=== PATIENT | male | born 1965 | race Caucasian/White ===

== ENCOUNTER 2018-02-09 17:25 | Emergency (ER) | payer OTHER ==
--- NOTE | 2018-02-09 17:43 | EDPHY ---
H & P Stated Complaint: l sided abd pain waxes and wanes last 5 days denies n/v/d Time Seen by Provider: 02/09/18 17:43 - Personal History Current Tetanus Diphtheria and Acellular Pertussis (TDAP): Yes - Medical/Surgical History Hx Asthma: No Hx Chronic Respiratory Disease: No Hx Diabetes: No Hx Cardiac Disease: No Hx Renal Disease: No Hx Cirrhosis: No Hx Alcoholism: No Hx HIV/AIDS: No Hx Splenectomy or Spleen Trauma: No Other PMH: healthy - Social History Smoking Status: Never smoked Constitutional: Initial Vital Signs Temperature (C) 36.3 C 02/09/18 17:30 Heart Rate 80 02/09/18 17:30 Respiratory Rate 18 02/09/18 17:30 Blood Pressure 115/79 02/09/18 17:30 O2 Sat (%) 94 02/09/18 17:30 O2 Delivery Mode Room Air Allergies/Adverse Reactions: No Known Allergies Allergy (Verified 02/09/18 17:29) Home Medications: Medication Instructions Recorded HYDROcodone/APAP 325 [[place] 1 - 2 each PO Q4-6PRN PRN #20 tab 02/09/18 10/325] Medical Decision Making - Diagnostics Imaging Results: Imaging Impressions Abdomen CT 02/09/18 17:48 Impression: 1. Mild constipation. No diverticulitis or bowel obstruction. 2. Query low-grade pancreatitis evidenced by subtle peripancreatic edema. 3. No intraabdominal mass, fluid collection, or lymphadenopathy. Findings discussed with Emergency Department physician, Brandon Moya M.D., on February 09, 2018 at 1839. E:/amm Imaging: Discussed imaging studies w/ call center assistant Radiologist, I viewed and interpreted images myself ED Course/Re-evaluation: CHIEF COMPLAINT: Left-sided abdominal pain for several days HISTORY OF PRESENT ILLNESS: 53-year-old healthy male with no complaints except for left-sided upper abdominal pain for several days. It hurts just over his spleen area. He denies any injuries. Denies any fevers or chills. Denies any nausea vomiting diarrhea. He has had prior surgery which is appendectomy years ago. He has never had any symptoms like this. The pain waxes and wanes randomly and is not exacerbated or relieved by anything. REVIEW OF SYSTEMS: A comprehensive 10 system review of systems is otherwise negative aside from elements mentioned in the history of present illness and medical decision making. PHYSICAL EXAM: HR, BP, O2 Sat, RR. Temp noted General Appearance: Alert, well hydrated, appropriate, and non-toxic appearing. Head: Atraumatic without scalp tenderness or obvious injury Eyes: Pupils equal, round, reactive to light and accommodation, EOMI, no trauma , no injection. Ears: Clear bilaterally, no perforation, normal landmarks Nose: Atraumatic, no rhinorrhea, clear. Throat: There is no erythema or exudates, no lesions, normal tonsils, mucus membranes moist. Neck: Supple, 2+ carotid upstroke, nontender, no lymphadenopathy. Respiratory: No retractions, no distress, no wheezes, and no accessory muscle use. Lungs are clear to auscultation bilaterally. Cardiovascular: Regular rate and rhythm, no murmurs, rubs, or gallops. Bilateral carotid, radial, dorsalis pedis, and posterior tibial pulses intact. Good capillary refill all extremities. Gastrointestinal: Abdomen is soft, nontender, non-distended, no masses, no rebound, no guarding, no peritoneal signs. Musculoskeletal: Normal active ROM of all extremities, atraumatic. Neurological: Alert, appropriate, and interactive. The patient has normal DTRs and non-focal cranial nerves, motor, sensory, and cerebellar exam. Skin: No rashes, good turgor, no nodules on palpation. Past medical history: Noncontributory Past surgical history: Appendectomy Family history: Noncontributory Social history: , employed, does not abuse tobacco drugs or alcohol DIAGNOSTICS/PROCEDURES/CRITICAL CARE TIME: Study: CT scan of the abdomen pelvis with IV contrast Indication: Left upper quadrant abdominal pain Results: CT scan of the abdomen and pelvis was obtained. The results of the study are possible pancreatitis. The study was read by the radiologist, Dr. Akers. I viewed the images myself on the PACS system. DIFFERENTIAL DIAGNOSIS: The differential diagnosis for the patient's abdominal pain included but was not limited to appendicitis, cholecystitis, hernias, testicular torsion, gastritis, and urinary tract infection. MEDICAL DECISION MAKING: This patient is in no distress. Vital signs are normal. I am not picking up any significant acute abdomen or peritoneal signs. He is somewhat symptom free now as this pain waxes and wanes and I cannot really reproduce it with palpation. We will perform a Chem [address] of his abdomen pelvis all pending. Patient does not want anything for pain or nausea. CT shows possible pancreatitis. Lipase and LFTs ordered. 1L IV NS and 30mg IV Toradol ordered. Lipase is elevated at 7532, indicating pancreatitis. I discussed these results with the patient and heavily recommended admission for further evaluation. He declined admission and would prefer to return home and follow up with GI independently. I discussed the risks including of leaving without determining the cause of his pancreatitis, but he affirms he would like to return home. He will be discharged home with a script for [place], instructions to follow a clear liquid diet, and follow up with GI within 24 hours. Return precautions discussed. - Data Points Laboratory Results: 02/09/18 02/09/18 18:34 17:59 POC Hgb 12.9 gm/dL L gm/dL (13.7-17.5) POC Hct 38 % L % (40-51) POC Sodium 140 mEq/L mEq/L (135-145) POC Potassium 4.5 mEq/L mEq/L (3.3-5.0) POC Chloride 101 mEq/L mEq/L (97-110) POC BUN 23 mg/dL mg/dL (7-23) POC Creatinine 1.2 mg/dL mg/dL (0.7-1.3) POC Glucose 98 mg/dL mg/dL (70-100) Total Bilirubin 0.7 mg/dL mg/dL (0.1-1.4) Conjugated Bilirubin 0.5 mg/dL mg/dL (0.0-0.5) Unconjugated Bilirubin 0.2 mg/dL mg/dL (0.0-1.1) AST 53 IU/L IU/L (17-59) ALT 32 IU/L IU/L (21-72) Alkaline Phosphatase 74 IU/L IU/L (38-126) Total Protein 7.5 g/dL g/dL (6.3-8.2) Albumin 4.3 g/dL g/dL (3.5-5.0) Lipase 7532 IU/L H IU/L (23-300) Specimen Hemolysis 161 Medications Given: Discontinued Medications Hydrocodone Bitart/Acetaminophen ([place] 5/325mg Prepack#6) 1 btl TAKEHOME EDNOW ONE Stop: 02/09/18 20:24 Last Admin: 02/09/18 20:27 Dose: 1 btl Sodium Chloride (Ns) 1,000 mls @ 0 mls/hr IV EDNOW ONE; Wide Open PRN Reason: Protocol Stop: 02/09/18 17:49 Last Admin: 02/09/18 17:59 Dose: 1,000 mls Ketorolac Tromethamine (Toradol) 30 mg IVP EDNOW ONE Stop: 02/09/18 18:42 Last Admin: 02/09/18 18:44 Dose: 30 mg Point of Care Test Results: Chemistry 02/09/18 17:59 POC Sodium 140 mEq/L mEq/L (135-145) POC Potassium 4.5 mEq/L mEq/L (3.3-5.0) POC Chloride 101 mEq/L mEq/L (97-110) POC BUN 23 mg/dL mg/dL (7-23) POC Creatinine 1.2 mg/dL mg/dL (0.7-1.3) POC Glucose 98 mg/dL mg/dL (70-100) ISTAT H&H 02/09/18 17:59 POC Hgb 12.9 gm/dL L gm/dL (13.7-17.5) POC Hct 38 % L % (40-51) Departure - Departure Disposition: Home, Routine, Self-Care Clinical Impression: Pancreatitis Qualifiers: Chronicity: acute Pancreatitis type: unspecified pancreatitis type Acute pancreatitis complication: unspecified Qualified Code(s): K85.90 - Acute pancreatitis without necrosis or infection, unspecified Condition: Good Instructions: Pancreatitis (ED), Clear Liquid Diet (ED) Additional Instructions: 1. Clear liquid diet until evaluated by GI doctor. 2. Follow up with GI doctor in the next 24 hours without fail. 3. Use [place] as prescribed as needed for severe pain. This medication can make you constipated and drowsy. Do not use prior to driving. 4. Return to the ED for any worsening of condition or if you decide you would like to be admitted. Referrals: Ban Gutiérrez MD [Primary Care Provider] - As per Instructions Dwayne Gee MD [Medical Doctor] - As per Instructions Prescriptions: HYDROcodone/APAP 10/325 [[place] 10/325] 1 - 2 each PO Q4-6PRN PRN #20 tab PRN Reason: Pain, Moderate
[2018-02-09] MEDS ORDERED: NS 1,000 ML IV ONE (17:48)
[2018-02-09] MEDS ORDERED: IOPAMIDOL (ISOVUE-300) 100 ML BTL ONE (18:06)
[2018-02-09] MEDS ORDERED: KETOROLAC 30 MG/1 ML SDV IVP ONE (18:41)
[2018-02-09] MEDS ORDERED: HYDROCOD/APAP 5/325 PREPACK#6 BTL TAKEHOME ONE (20:23)
[2018-02-09 20:35] VITALS: BP 115/78
== END 2018-02-09 20:35 | disposition home or self-care (01) ==
DX: K85.90 Acute pancreatitis without necrosis or infection, unspecified (principal); E86.9 Volume depletion, unspecified
CPT/HCPCS: 82435-PO; 82565-PO; 82947-PO; 84132-PO; 84295-PO; 84520-PO; 85014-ER; 96374; J1885; Q9967

== ENCOUNTER 2018-02-23 16:40 | Observation (INO) | payer OTHER ==
[2018-02-23] MEDS ORDERED: NS 1,000 ML IV ONE (17:12)
--- NOTE | 2018-02-23 17:15 | EDPHY ---
H & P Time Seen by Provider: 02/23/18 16:58 HPI/ROS: CHIEF COMPLAINT: Pancreatitis abdominal pain HISTORY OF PRESENT ILLNESS: Patient was seen here in the emergency department on February 09 with pancreatitis diagnosed on CT with a lipase of 7500. He has been having some abdominal pain since about new years Maureen. He just be treated as an outpatient is lipase went down to 991 on February 14 but was up over 3000 again on February 19 when he started eating solid food. He was sent here by Dr. Ban Gutiérrez for admission. Patient describes just generalized abdominal pain which is constant and worse with eating or drinking anything. Does not radiate. Not associated with fevers vomiting or diarrhea. REVIEW OF SYSTEMS: Eye: no change in vision ENT: no sore throat Cardiac: no chest pain or syncope Pulmonary: no cough or SOB Abdomen: HPI Musculoskeletal: no back pain Skin: no rash Neuro: no headache Constitutional: no fever : no urinary symptoms A comprehensive 10 point review of systems is otherwise negative aside from elements mentioned in the history of present illness. PAST MEDICAL HISTORY: HIV Social history: Here with his brother, denies alcohol General Appearance: Alert and conversant, cooperative. Eyes: No scleral icterus. ENT, Mouth: Normal mucous membranes. Respiratory: Normal respiratory effort, breath sounds equal, lungs are clear to auscultation. Cardiovascular: Regular rate and rhythm. Gastrointestinal: Abdomen is soft and non tender. No rebound or guarding. Neurological: Alert, face symmetric, normal motor and sensory in extremities. Skin: Warm and dry, no rashes. Musculoskeletal: No peripheral edema. Psychiatric: Not agitated. Emergency Department course/MDM: Admission hospitalist service for pancreatitis. IV fluids. The CT scan from February 09 reviewed and gallbladder was described as normal. 1820: Lipase >2600, pancreatitis. Smoking Status: Never smoked Constitutional: Initial Vital Signs Temperature (C) 36.5 C 02/23/18 16:43 Heart Rate 65 02/23/18 16:43 Respiratory Rate 16 02/23/18 16:43 Blood Pressure 121/59 H 02/23/18 16:43 O2 Sat (%) 97 02/23/18 16:43 O2 Delivery Mode Room Air Allergies/Adverse Reactions: No Known Allergies Allergy (Verified 02/23/18 16:42) Home Medications: Medication Instructions Recorded Acetaminophen with Codeine 1 tab PO 02/23/18 [TYLENOL #3] Dolutegravir Sodium [Tivicay] 50 mg PO DAILY 02/23/18 Emtricitabine/Tenofov Alafenam 1 tab PO DAILY 02/23/18 [Descovy 200-25 mg Tablet] clonazePAM [Clonazepam] 1 mg PO BID 02/23/18 Medical Decision Making Differential Diagnosis: Differential for pancreatitis considered including but not limited to alcoholic pancreatitis, drug reaction, hypertriglyceridemia, gallstones, idiopathic Consult/Admit Bed Type: [facility] - Data Points Laboratory Results: Laboratory Results 02/23/18 17:00 02/23/18 17:00 02/23/18 02/23/18 17:00 17:00 WBC 6.21 10^3/uL 10^3/uL (3.80-9.50) RBC 4.10 10^6/uL L 10^6/uL (4.40-6.38) Hgb 13.0 g/dL L g/dL (13.7-17.5) Hct 38.3 % L % (40.0-51.0) MCV 93.4 fL fL (81.5-99.8) MCH 31.7 pg pg (27.9-34.1) MCHC 33.9 g/dL g/dL (32.4-36.7) RDW 11.9 % % (11.5-15.2) Plt Count 281 10^3/uL 10^3/uL (150-400) MPV 10.3 fL fL (8.7-11.7) Neut % (Auto) 50.1 % % (39.3-74.2) Lymph % (Auto) 34.6 % % (15.0-45.0) [place] % (Auto) 10.5 % % (4.5-13.0) Eos % (Auto) 3.5 % % (0.6-7.6) Baso % (Auto) 1.1 % % (0.3-1.7) Nucleat RBC Rel Count 0.0 % % (0.0-0.2) Absolute Neuts (auto) 3.11 10^3/uL 10^3/uL (1.70-6.50) Absolute Lymphs (auto) 2.15 10^3/uL 10^3/uL (1.00-3.00) Absolute Monos (auto) 0.65 10^3/uL 10^3/uL (0.30-0.80) Absolute Eos (auto) 0.22 10^3/uL 10^3/uL (0.03-0.40) Absolute Basos (auto) 0.07 10^3/uL 10^3/uL (0.02-0.10) Absolute Nucleated RBC 0.00 10^3/uL 10^3/uL (0-0.01) Immature Gran % 0.2 % % (0.0-1.1) Immature Gran # 0.01 10^3/uL 10^3/uL (0.00-0.10) Sodium 136 mEq/L mEq/L (135-145) Potassium 4.1 mEq/L mEq/L (3.5-5.2) Chloride 101 mEq/L mEq/L (97-110) Carbon Dioxide 27 mEq/l mEq/l (22-31) Anion Gap 8 mEq/L mEq/L (6-14) BUN 13 mg/dL mg/dL (7-23) Creatinine 1.4 mg/dL H mg/dL (0.7-1.3) Estimated GFR 53 Glucose 98 mg/dL mg/dL (70-100) Calcium 9.5 mg/dL mg/dL (8.5-10.4) Total Bilirubin 0.3 mg/dL mg/dL (0.1-1.4) Conjugated Bilirubin 0.3 mg/dL mg/dL (0.0-0.5) Unconjugated Bilirubin 0.0 mg/dL mg/dL (0.0-1.1) AST 26 IU/L IU/L (17-59) ALT 30 IU/L IU/L (21-72) Alkaline Phosphatase 144 IU/L H IU/L (38-126) Total Protein 7.7 g/dL g/dL (6.3-8.2) Albumin 4.4 g/dL g/dL (3.5-5.0) Lipase 2618 IU/L H IU/L (23-300) Medications Given: Acetaminophen (Tylenol) 650 mg PO Q6 PRN PRN Reason: Pain, Mild/Fever, Can Take PO Stop: 08/22/18 17:32 Last Admin: 02/23/18 18:06 Dose: 650 mg Discontinued Medications Sodium Chloride (Ns) 1,000 mls @ 0 mls/hr IV EDNOW ONE; Wide Open PRN Reason: Protocol Stop: 02/23/18 17:13 Last Admin: 02/23/18 17:34 Dose: 1,000 mls Departure - Departure Disposition: [facility] Inpatient Acute Clinical Impression: Pancreatitis Qualifiers: Chronicity: acute Pancreatitis type: unspecified pancreatitis type Acute pancreatitis complication: no infection or necrosis Qualified Code(s): K85.90 - Acute pancreatitis without necrosis or infection, unspecified Condition: Good
[2018-02-23 17:17] LABS: PLATELET COUNT 281 10^3/uL (150-400)
[2018-02-23] MEDS ORDERED: ONDANSETRON 4 MG/2 ML VIAL IVP PRN (17:33)
[2018-02-23] MEDS ORDERED: ACETAMINOPHEN 325 MG TAB PO PRN (17:33)
[2018-02-23] MEDS ORDERED: ZOLPIDEM TARTRATE 5 MG TAB PO PRN (17:33)
[2018-02-23] MEDS: NS 1,000 ML IV SCH (18:24)
[2018-02-23] MEDS ORDERED: NALOXONE HCL 0.4 MG/ML INJ IVP PRN (20:32)
[2018-02-23] MEDS ORDERED: morphINE PCA 30 MG/30 ML PCA IV PRN (20:32)
[2018-02-23] MEDS ORDERED: clonazePAM 1 MG TAB PO PRN (21:08)
[2018-02-23] MEDS: MELATONIN 3 MG TAB PO SCH (22:41)
[2018-02-24] MEDS: oxyCODONE IR 5 MG TAB PO PRN ×4 (00:16→23:41)
[2018-02-24] MEDS: NS 1,000 ML IV SCH ×4 (00:18→23:42)
--- NOTE | 2018-02-24 03:00 | PDGENHP ---
History and Physical - Chief Complaint Abdominal pain - History of Present Illness 53 yo M w/ hx of well controlled HIV presents with sub-acute pancreatitis. The patient first developed abdominal discomfort at the end of January. He presented to the ED on 02/09 and wa diagnosed with pancreatitis per CT with subtle peripancreatic edema and lipase of 7500. He opted to be treated as an outpatient and started a clear liquid diet at that time. He was advanced to solids on 02/14 but was transitioned back to liquids a few days later when his lipase increased. He saw his ID doctor Dr. Gutiérrez in clinic yesterday who sent him to the ED for evaluation since e was not getting better with conservative, outpatient management. At the time of my evaluation he is having moderate, central pain. He is tolerating PO reasonably well but still having pain after almost 3 weeks of symptoms. Abdominal ultrasound in the ED did not show stones but revealed a prominent pancreatic duct. His lipase is 2618 today. He denies significant ETOH use, hx of gallstones, family hx of pancreatitis, or other recent illness aside from the issues described above. He takes Descovy and Tivicay for his HAART regimen, which are not common culprits for drug induced pancreatitis. Case discussed with Dr. Carvajal; records reviewed and summarized above. History Information - Allergies/Home Medication List Allergies/Adverse Reactions: No Known Allergies Allergy (Verified 02/23/18 16:42) Home Medications: Dolutegravir Sodium [Tivicay] 50 mg PO DAILY 02/23/18 [Last Taken 02/23/18] Emtricitabine/Tenofov Alafenam [Descovy 200-25 mg Tablet] 1 tab PO DAILY [Last Taken 02/23/18] Hydrocodone/Acetaminophen [Hydrocodon-Acetaminophen 5-325] 1 - 2 each PO Q4H PRN 02/23/18 [Last Taken Unknown] clonazePAM [Clonazepam] 1 mg PO BID PRN 02/23/18 [Last Taken Unknown] I have personally reviewed and updated: family history, medical history - Past Medical History HIV - Surgical History Reports: appendectomy - Family History Additional family history: Denies family hx of pancreatitis - Social History Smoking Status: Never smoked Review of Systems Review of Systems: ROS: 10pt was reviewed & negative except for what was stated in HPI & below Physical Exam Physical Exam: Temp Pulse Resp BP Pulse Ox 36.4 C 63 18 128/77 H 95 02/23/18 23:18 02/23/18 23:18 02/23/18 23:18 02/23/18 23:18 02/23/18 23:18 Constitutional: appears nourished, uncomfortable Eyes: PERRL, EOMI Ears, Nose, Mouth, Throat: moist mucous membranes, no oral mucosal ulcers Cardiovascular: regular rate and rhythym, no murmur, rub, or gallop Respiratory: no respiratory distress, no rales or rhonchi Gastrointestinal: normoactive bowel sounds, tenderness (Mild, epi-gastric), No guarding, No rebound, No distension Skin: warm, normal color Musculoskeletal: full muscle strength, no muscle tenderness Neurologic: AAOx3, CN II-XII Intact Psychiatric: interacting appropriately, not anxious Lab Data & Imaging Review 02/23/18 17:00 02/23/18 17:00 WBC 6.21 10^3/uL (3.80-9.50) 02/23/18 17:00 RBC 4.10 10^6/uL (4.40-6.38) L 02/23/18 17:00 Hgb 13.0 g/dL (13.7-17.5) L 02/23/18 17:00 Hct 38.3 % (40.0-51.0) L 02/23/18 17:00 MCV 93.4 fL (81.5-99.8) 02/23/18 17:00 MCH 31.7 pg (27.9-34.1) 02/23/18 17:00 MCHC 33.9 g/dL (32.4-36.7) 02/23/18 17:00 RDW 11.9 % (11.5-15.2) 02/23/18 17:00 Plt Count 281 10^3/uL (150-400) 02/23/18 17:00 MPV 10.3 fL (8.7-11.7) 02/23/18 17:00 Neut % (Auto) 50.1 % (39.3-74.2) 02/23/18 17:00 Lymph % (Auto) 34.6 % (15.0-45.0) 02/23/18 17:00 [place] % (Auto) 10.5 % (4.5-13.0) 02/23/18 17:00 Eos % (Auto) 3.5 % (0.6-7.6) 02/23/18 17:00 Baso % (Auto) 1.1 % (0.3-1.7) 02/23/18 17:00 Nucleat RBC Rel Count 0.0 % (0.0-0.2) 02/23/18 17:00 Absolute Neuts (auto) 3.11 10^3/uL (1.70-6.50) 02/23/18 17:00 Absolute Lymphs (auto) 2.15 10^3/uL (1.00-3.00) 02/23/18 17:00 Absolute Monos (auto) 0.65 10^3/uL (0.30-0.80) 02/23/18 17:00 Absolute Eos (auto) 0.22 10^3/uL (0.03-0.40) 02/23/18 17:00 Absolute Basos (auto) 0.07 10^3/uL (0.02-0.10) 02/23/18 17:00 Absolute Nucleated RBC 0.00 10^3/uL (0-0.01) 02/23/18 17:00 Immature Gran % 0.2 % (0.0-1.1) 02/23/18 17:00 Immature Gran # 0.01 10^3/uL (0.00-0.10) 02/23/18 17:00 Sodium 136 mEq/L (135-145) 02/23/18 17:00 Potassium 4.1 mEq/L (3.5-5.2) 02/23/18 17:00 Chloride 101 mEq/L (97-110) 02/23/18 17:00 Carbon Dioxide 27 mEq/l (22-31) 02/23/18 17:00 Anion Gap 8 mEq/L (6-14) 02/23/18 17:00 BUN 13 mg/dL (7-23) 02/23/18 17:00 Creatinine 1.4 mg/dL (0.7-1.3) H 02/23/18 17:00 Estimated GFR 53 02/23/18 17:00 Glucose 98 mg/dL (70-100) 02/23/18 17:00 Calcium 9.5 mg/dL (8.5-10.4) 02/23/18 17:00 Total Bilirubin 0.3 mg/dL (0.1-1.4) 02/23/18 17:00 Conjugated Bilirubin 0.3 mg/dL (0.0-0.5) 02/23/18 17:00 Unconjugated Bilirubin 0.0 mg/dL (0.0-1.1) 02/23/18 17:00 AST 26 IU/L (17-59) 02/23/18 17:00 ALT 30 IU/L (21-72) 02/23/18 17:00 Alkaline Phosphatase 144 IU/L (38-126) H 02/23/18 17:00 Total Protein 7.7 g/dL (6.3-8.2) 02/23/18 17:00 Albumin 4.4 g/dL (3.5-5.0) 02/23/18 17:00 Lipase 2618 IU/L (23-300) H 02/23/18 17:00 Imaging Review: Imaging Impressions Abdomen Ultrasound 02/23/18 17:35 Impression: 1. Newly prominent pancreatic duct in a patient with mild pancreatitis. The distal half of the pancreas is obscured by bowel gas. If complete pancreatic evaluation is important then consider obtaining follow-up CT with IV contrast, particularly if enzymes have not normalized. Otherwise continued ultrasound follow-up may be appropriate. Assessment & Plan Assessment: 53 yo M presents with sub-acute pancreatitis. Plan: 1. Sub-acute pancreatitis - Present for almost 3 weeks; etiology remains unclear. His HAART regimen is a possible culprit but Descovy and Tivicay rarely , if ever, are known to cause pancreatitis. He has no prior hx of gallstones and none are seen on US. He drinks very little ETOH. US on admission demonstrates new pancreatic duct dilation. - Will repeat CT scan for further evaluation - NPO, ADAT - mIVF, pain control PRN - ID consulted to consider possibility of HAART contribution to symptoms - If etiology remains unclear, may benefit from MRCP/ERCP 2. HIV - Well controlled with undetectable viral load on 02/14/18; CD4 747 on . He is on Descovy and Tivicay as an outpatient. - ID consult placed 3. LAURIE - I suspect this is related to dehydration from ongoing pancreatitis. - mIVF overnight - Repeat BMP in the morning Diet - NPO, mIVF, ADAT Code - Full Ppx - LMWH Dispo - Admit under observation status
[2018-02-24 05:47] LABS: PLATELET COUNT 225 10^3/uL (150-400)
[2018-02-24] MEDS: ENOXAPARIN 40 MG/0.4 ML SYR SC SCH (08:01)
[2018-02-24] MEDS ORDERED: IOPAMIDOL (ISOVUE 370) 100 ML BTL IV ONE (09:59)
--- NOTE | 2018-02-24 10:17 | PCMIDPN ---
Assessment/Plan: #Pancreatitis: unclear etiology, strongly suspect not ARV. L midquadrant abdominal pain, minimal weight loss --repeat CT today --GI consult placed by me, spoke to Dr. Luque. Await rec from GI for additional w/u --keep NPO except for meds for bowel/pancreas rest #HIV: long standing viral suppression: do not disclose to family/friends --continue ARV: TAF/FTC/DTG (prior to this TDF/FTC/RAL) Care also coordinated with Dr. Pearson Subjective: 53-year-old with well-controlled HIV, CD4 747 with undetectable viral load on dolutegravir, emtricitabine and tenofovir alafenamide whose problems date back to beginning of the year following new 's richa when he developed abdominal pain in described as "hunger pains x10" that do not change with eating. Abdominal pain is not particularly worsened with eating, only way that is improved is pain medicines. It does not radiate, no associated changes in bowel habits. Appetite is fair. Small amount of weight loss. No jaundice. No new medicines including vitamins and herbs. Reviewed alcohol use which I would drinking primarily socially 2 drinks, which is not changed from his baseline and generally occurs < 1x weekly. Never used tobacco, marijuana. No recent travel. No dietary changes. Patient's abdominal pain became bothersome enough to present to the emergency room 02/09/18 and had elevated lipase to 7532. He then went on liquid diet and recheck lipase in 900s. Then he returned to some solid foods but fairly bland, low fat diet. Persistent abdominal discomfort and lipase was rechecked and increased to 3092 on 02/19/18. Patient was admitted for work up of pancreatitis. Objective: Vital Signs Temp Pulse Resp BP Pulse Ox 36.4 C 63 16 111/75 95 02/24/18 08:00 02/24/18 08:00 02/24/18 08:00 02/24/18 08:00 02/24/18 08:00 Laboratory Results 02/24/18 05:23 02/24/18 05:23 10/19/15 02/09/18 02/14/18 12:20 18:34 09:04 Lipase 22.0 L 7532 H 991 H 02/19/18 02/23/18 12:48 17:00 Lipase 3092 H 2618 H - Physical Exam General Appearance: alert, no apparent distress EENT: other (good dentition), No thrush Respiratory: lungs clear, No accessory muscle use Neck: supple Cardiac/Chest: regular rate, rhythm, No systolic murmur Extremities: No pedal edema Abdomen: normal bowel sounds, non-tender, soft, other (Mild discomfort to Bilateral "mid" quadrant region), No distended, No guarding, No rebound, No mass , No peritoneal signs Male Genitalia: No south Skin: normal color, warm/dry, No diaphoresis, No rash Neuro/Psych: alert, normal mood/affect, oriented x 3 - Time Spent With Patient Time Spent with Patient: greater than 35 minutes Time Spent with Patient: Greater than 35 minutes spent on this patients care, greater than 50% of time spent counseling, educating, and coordinating care regarding the above mentioned plan. ICD10 Worksheet Patient Problems: Problems Problem Status Onset Pancreatitis Acute MRSA - Methicillin resistant Staphylococcus aureus infection Active
--- NOTE | 2018-02-24 10:46 | ASMTCMCOM ---
CM Note CM Note Notes: Chart review completed on patient. Pt admitted for pancreatitis of unknown etiology. Pt is single and lives independently. Pt is HIV positive, well maintained and family is unaware of diagnosis. GI consulted by ID. Anticipate pt will discharge independently. CM to follow. D/C Plan: Independent Date Signed: 02/24/2018 10:45 AM Electronically Signed By:Evelin Carpio
[2018-02-24] MEDS: Emtricitabine/Tenofov Alafenam [Descovy 200-25 Mg Tablet] PO SCH (11:29)
[2018-02-24] MEDS: Dolutegravir Sodium [Tivicay] 50 MG PO SCH (11:30)
[2018-02-24] MEDS: HYDROCODONE/APAP 5/325 TAB PO PRN ×2 (12:00→15:53)
--- NOTE | 2018-02-24 14:09 | GCON ---
DATE OF CONSULTATION: 02/24/2018 CHIEF COMPLAINT: Abdominal pain. HISTORY OF PRESENT ILLNESS: I am asked to see this patient in consultation by Dr. Juarez for chief complaint of abdominal pain and pancreatitis. Patient is a 53-year-old admitted with pancreatitis. He had similar issue a few weeks ago , admitted, responded to conservative measures. Cause is unclear. He had continued abdominal pain, although on mild to moderate level, still able to eat , but was having elevated lipase and recommended to come into the ER. He has had no fevers. The patient is HIV positive and has been stable on HIV medications for quite some time. In discussion with the ID doctor, they believe that this is not the cause of his pancreatitis. He has never had AIDS. The patient drinks only occasionally, but no recent alcohol before the event of pancreatitis. There is no family history for pancreatitis. No other recent drugs or supplements. At this point, patient has no nausea and vomiting. He is having normal bowel movements, but does feel some epigastric discomfort. Ultrasound yesterday showed suggestion of prominent pancreatic duct, although not well seen. Today, patient is feeling better with pain medications. ALLERGIES: No known drug allergies. CURRENT MEDICATIONS: Clonazepam, Lovenox, [place], melatonin,oxycodone. He takes antiretrovirals which have been stable and no change in medication. PAST MEDICAL HISTORY: Notable for HIV. He is status post appendectomy. FAMILY HISTORY: Negative for history of pancreatitis. SOCIAL HISTORY: Only occasional alcohol. He has never smoked. REVIEW OF SYSTEMS: I performed a complete review of systems which was negative except for the pertinent positives, negatives noted above in the HPI. PHYSICAL EXAM: VITAL SIGNS: Afebrile at 36.5, BP 102/70, pulse 51. CONSTITUTIONAL: He is alert and oriented. He is in no apparent distress. EYES : No scleral icterus. HEENT: No oral lesions. CARDIOVASCULAR: Regular rhythm. CHEST: Clear to auscultation. ABDOMEN: Has some tenderness to the epigastric area, but no masses, no rebound. Normal bowel sounds. NEUROLOGICAL : Nonfocal. SKIN: No lesions. LABORATORY DATA: White count 5, hematocrit 35, platelets 225. Alkaline phosphatase 112, AST 17, ALT 32, total bilirubin 0.2. Triglycerides normal at 129. Lipase 2618. Ultrasound on 02/23/2018 shows newly prominent pancreatic duct in a patient with mild pancreatitis. The distal half of the pancreas is obscured. CT scan of the abdomen done 02/23/2018 shows mild pancreatitis, unchanged by imaging. There is no pancreatic necrosis or peripancreatic collection. Cystic lesion in the pancreatic head measures 0.07 cm and may represent pancreatic cyst or sequelae of recent pancreatitis. ASSESSMENT: Patient with pancreatitis of unclear cause. His ultrasound suggests perhaps prominent pancreatic duct and I think it would be advisable to do imaging to better assess for divisum or stricture, etc. Also has pancreatic cyst of unclear cause. Patient does not have evidence of gallstones. He does not drink alcohol. His triglycerides are normal. Differential would also include medications, although his medications have been stable for many years. Consider autoimmune pancreatitis; I think unlikely. The patient has never had acquired immune deficiency syndrome sequelae, so doubt acquired immune deficiency syndrome cholangiopathy. PLAN: 1. Recommend continued IV fluids. 2. We will check MRCP with and without contrast of the pancreas. 3. May need to consider endoscopic ultrasound to evaluate pancreatic cyst as guided by MRI findings. 4. We will check an IgG4. Patient would like to be discharged tomorrow, which I think will be possible as his pancreatitis is mild and we can complete the workup as an outpatient. Thank you for this consult. /[id number]/MODL MTDD
[2018-02-24] MEDS ORDERED: GADOBUTROL 10 ML VIAL IVP ONE (15:49)
[2018-02-24] MEDS: MELATONIN 3 MG TAB PO SCH (20:03)
[2018-02-25] MEDS: HYDROCODONE/APAP 5/325 TAB PO PRN ×2 (04:42→08:38)
[2018-02-25] MEDS: NS 1,000 ML IV SCH (07:12)
[2018-02-25 08:00] VITALS: BP 90/55
[2018-02-25] MEDS: ENOXAPARIN 40 MG/0.4 ML SYR SC SCH (08:37)
[2018-02-25] MEDS: Dolutegravir Sodium [Tivicay] 50 MG PO SCH (08:38)
[2018-02-25] MEDS: Emtricitabine/Tenofov Alafenam [Descovy 200-25 Mg Tablet] PO SCH (08:39)
--- NOTE | 2018-02-25 10:48 | PCMIDPN ---
Assessment/Plan: #Pancreatitis: unclear etiology, strongly suspect not ARV. L midquadrant abdominal pain, minimal weight loss --continue clear liquids --dc today --already has GI f/u Monday #HIV: High CD4, long standing viral suppression: do not disclose to family/ friends --continue ARV: TAF/FTC/DTG Greater than 15 minutes spent on this patients care, greater than 50% of time spent counseling, educating, and coordinating care regarding the above mentioned plan. Care coordinated with Dr. Pearson Subjective: Patient continues to have mild abdominal pain. Feels ready to go home, will maintain on clear liquid diet Objective: Vital Signs Temp Pulse Resp BP Pulse Ox 36.5 C 74 12 90/55 L 95 02/25/18 07:59 02/25/18 07:59 02/25/18 07:59 02/25/18 07:59 02/25/18 07:59 Laboratory Results 02/24/18 05:23 02/24/18 05:23 02/24/18 02/25/18 02/26/18 05:59 05:59 05:59 Intake Total 1000 0 Balance 1000 0 - Physical Exam General Appearance: alert, no apparent distress Skin: No rash Neuro/Psych: alert, normal mood/affect, oriented x 3, other (Ambulating in the room) ICD10 Worksheet Patient Problems: Problems Problem Status Onset Pancreatitis Acute MRSA - Methicillin resistant Staphylococcus aureus infection Active
--- NOTE | 2018-02-25 13:01 | ASDISCHSUM ---
Discharge Information Plan Status:Home with No Needs Medically Cleared to Leave:02/24/2018 Discharge Date:02/25/2018 11:54 AM CM D/C Disposition:Home, Routine, Self-Care ADT D/C Disposition:Home, Routine, Self-Care Projected Discharge Date:02/25/2018 12:00 AM Transportation at D/C:Family Discharge Delay Reason: Follow-Up Date:02/25/2018 12:00 AM Discharge Slot: Final Diagnosis:Pancreatitis Placement Information Patient Contact Information Contact Name:JOYCELYN Relationship: Address: Work Phone: City: [facility] Phone: [facility]/[employer] Code: Email: Financial Information Financial Class:[employer] Primary [facility] Desc[facility] Primary Plan Number:[id number] Secondary Plan Desc: Secondary Plan Number: Assessment Information [facility] CM Progress Note CM Note CM Note Notes: Chart review completed on patient. Pt admitted for pancreatitis of unknown etiology. Pt is single and lives independently. Pt is HIV positive, well maintained and family is unaware of diagnosis. GI consulted by ID. Anticipate pt will discharge independently. CM to follow. D/C Plan: Independent Date Signed: 02/24/2018 10:45 AM Electronically Signed By:Evelin Carpio LACE LACKarli Length of stay for Answers: 2 days current admission Acuity / Level of Answers: No Care: Did the patient have an inpatient admission? Comorbidities - select Answers: Other Notes: HIV, pancreatitis all that apply # of Emergency department Answers: 1-2 visits in the last 6 months Score: 4 Date Signed: 02/25/2018 12:59 PM Electronically Signed By:Evelin Carpio Case Management Discharge Plan Note Case Management Discharge Discharge Order Complete? Answers: Yes Transportation Arranged Answers: Family/Friends Transport will Pick (Date 02/25/2018 12:00 AM & Time) Family Notified Answers: Yes Notes: by pt Discharge Comments Notes: Spoke with pt's RN and hospitalist. Pt to discharge independently. No therapies ordered. No CM needs noted at this time. Date Signed: 02/25/2018 01:01 PM Electronically Signed By:Evelin Carpio Intervention Information
--- NOTE | 2018-02-26 13:41 | HOSPPROG ---
Hospitalist Progress Note Assessment/Plan: 1. Sub-acute pancreatitis -continue with NPO, IVF -GI consult pending today -discussed care plan with Dr Juarez 2. HIV - Well controlled with undetectable viral load on 02/14/18; CD4 747 on . He is on Descovy and Tivicay as an outpatient. - per ID 3. LAURIE, resolved - continue IVF, recheck in AM Diet - NPO/IVF Code - Full Ppx - LMWH Dispo - Admit under observation status, possible discharge tomorrow but awaiting GI recommendations Subjective: Says no noticeable change to sxs yet. Mild pain, no n/v/d. No CP/ SOB. Dr Gutiérrez is PCP. - Time Spent With Patient Time Spent with Patient: greater than 25 minutes Time Spent with Patient: Greater than 25 minutes spent on this patients care, greater than 50% of time spent counseling, educating, and coordinating care regarding the above mentioned plan. - Physical Exam Constitutional: no apparent distress, appears nourished, not in pain Eyes: anicteric sclera, EOMI Ears, Nose, Mouth, Throat: moist mucous membranes, hearing normal Cardiovascular: regular rate and rhythym, no murmur, rub, or gallop, No edema Respiratory: no respiratory distress, no rales or rhonchi, clear to auscultation Gastrointestinal: normoactive bowel sounds, tenderness (mild, throughout), No guarding, No rebound, No distension Skin: warm, No rash Psychiatric: interacting appropriately, not anxious, not encephalopathic, thought process linear ICD10 Worksheet Patient Problems: Problems Problem Status Onset MRSA - Methicillin resistant Staphylococcus aureus infection Active Pancreatitis Acute
--- NOTE | 2018-02-26 15:32 | GDS ---
SERVICE: [facility] hospitalist. CONSULT: Infectious Disease and Gastroenterology. PROCEDURES: Abdominal CT on 02/23/2018, which showed a cystic lesion of the pancreatic head, mild pe ripancreatic fat stranding, no necrosis. Abdominal ultrasound on 02/23/2018, which showed prominent pancreatic duct. Abdominal MRI on 02/24/2018, which showed diffuse thickening of the pancreatic head with an intraparenchymal cyst. No discrete pancreatic head mass. Consideration for followup study in 3 months is clinically indicated. HISTORY AND PHYSICAL: Please see previously dictated note by Dr. Olivares. ADMISSION DIAGNOSES: 1. Subacute pancreatitis. 2. Human immunodeficiency virus positive, undetectable viral load. 3. Acute kidney injury. DISCHARGE DIAGNOSES: 1. Subacute pancreatitis, stable. 2. Acute kidney injury, resolved. 3. Human immunodeficiency virus positive, no active viral load. HOSPITAL COURSE: The patient was admitted for IV fluids and further evaluation of persistent abdomin al discomfort in the setting of elevated lipase. He had been trying to treat as an outpatient with a clear liquid diet but was referred to the emergency department when that did not resolve his symptom s, and his lipase remained elevated. He had initial studies as listed above. Lipase was 2618, and c reatinine was noted to be 1.4 at admission. White blood cell count was normal with a hemoglobin of 1 3. He does not have anemia at baseline per [facility] review. He was given IV fluids, did not require any pain medication. He remained n.p.o. for 24 hours and no change in his symptom was noted. Lipas e did decrease slightly to 1.647 and 1111. Gastroenterology was consulted and was not sure of the ca use of pancreatitis. Recommended a consideration of an ultrasound if needed. Ordered IgG levels [facility] returned with an elevated IgG3 at 120, slightly elevated IgG3 at 127, but otherwise IgG levels wer e normal. He remained afebrile throughout his stay, and his vital signs were stable. Dr. Ann benavides tinued his routine HIV medications, and there was no indication of infection otherwise. It was agree d that he could discharge home to continue with a bland/clear liquid diet and quick followup has alre cristobal been arranged as he is seeing Dr. Price in the office on February 27. If at any time he has worsening abdominal pain, fever, nausea, vomiting, or other concerns, he should return immediate ly to re-evaluate. DISCHARGE MEDICATIONS: No change to his home medications was made. DISCHARGE FOLLOWUP INSTRUCTIONS: He should follow up with Dr. Price as indicated above. He should fo llow up with his primary care doctor, Dr. Gutiérrez, within the next week. If at any time he has increas ed abdominal pain, nausea, vomiting, or fever, he should return for re-evaluation at the emergency de partment. Otherwise, should follow up as above. /[id number]/MODL
== END 2018-02-25 11:54 | disposition home or self-care (01) ==
LOC: INTOOBSV 17:16 → F3E 18:15
PROVIDERS: ADMIT Internal Medicine; ATTEND Family Medicine
DX: K85.90 Acute pancreatitis without necrosis or infection, unspecified (principal); N17.9 Acute kidney failure, unspecified; E86.0 Dehydration; Z21 Asymptomatic human immunodeficiency virus [HIV] infection status
CPT/HCPCS: 74177; 74183; 76705; 96360; 99285; G0378; 82787-90; A9585; J1650; J2270; J2405; Q9967